=== PATIENT | female | born 1960 | race African-American/Black ===

== ENCOUNTER 2017-12-02 12:35 | Outpatient (CLI) | payer MEDICARE, OTHER ==
--- NOTE | 2017-12-02 17:32 | Diagnostic Imaging Report ---
Indication: Back pain Technique: 4 views of the lumbar spine Comparison: None Findings: Vertebral body heights are preserved. Disc spaces are preserved. There are degenerative proliferative changes, particularly at L4-5. No acute fractures. No dislocations. Sacral iliac joint spaces are preserved. There is suggestion of degenerative facet arthrosis of the lower lumbar spine bilaterally. The included extra spinal soft tissues are unremarkable Impression: Degenerative changes, as described. No acute bony trauma
--- NOTE | 2017-12-02 17:33 | Diagnostic Imaging Report ---
Indication: Reason For Exam: PAIN Technique: One view of the pelvis, 2 views of the right hip Comparison: none Findings: No acute fractures. No dislocations. The joint spaces are preserved Impression: Negative
== END 2017-12-02 14:35 | disposition home or self-care (01) ==
LOC: RAD 12:35
DX: R10.2 Pelvic and perineal pain (principal); M54.9 Dorsalgia, unspecified; M25.551 Pain in right hip; Q90.9 Down syndrome, unspecified
CPT/HCPCS: 72110; 72170

== ENCOUNTER 2019-07-21 13:01 | Inpatient (IN) | payer MEDICARE, OTHER ==
[~2019-07-21] VITALS: Ht 139.7 cm; Wt 61.7 kg
[2019-07-21] MEDS ORDERED: RISPERIDONE1 MG/1 ML PO (13:32)
[2019-07-21] MEDS ORDERED: GABAPENTIN100 MG ORAL (13:32)
--- NOTE | 2019-07-21 15:07 | NUR ---
ED Nurse Note: Pt walked into ED w/ c/o mid ab pain 7/10 for 3 days. Pt has had cough, congestion, dizziness for a week. Pt has had nausea as well and vomited 1x this morning. Pt ab soft non-tender. Pt alert and orientedx4, ambulatory.
[2019-07-21 15:25] VITALS: BP 100/69
[2019-07-21] MEDS ORDERED: LR 1000ml 1,000 ML IV ONE ×2 (15:30)
[2019-07-21] MEDS ORDERED: Morphine Sulfate 4mg/ml Inj (IV USE ONLY) IVP ONE (15:30)
[2019-07-21] MEDS ORDERED: Omnipaque-300 100ml vial INJ PRN (15:30)
[2019-07-21 15:44] LABS: APPEARANCE,URINE CLEAR; BILIRUBIN, URINE NEGATIVE (NEGATIVE); GLUCOSE, URINE (UA) NEGATIVE (NEGATIVE); KETONES,URINE 2+ (NEGATIVE); LEUKOCYTE ESTERASE ,URINE 1+ (NEGATIVE); NITRITE,URINE NEGATIVE (NEGATIVE); PH,URINE 5 (4.5-8.0); PROTEIN,URINE 1+ (NEGATIVE); UROBILINOGEN,URINE NORMAL MG/DL (0.0-1.0)
[2019-07-21 15:49] LABS: HEMATOCRIT 40.5 % (37.0-47.0); HEMOGLOBIN 13.8 G/DL (12.0-16.0); MEAN CORPUSCULAR VOLUME 93 FL (80-99); PLATELET COUNT 225 K/UL (150-450); RED BLOOD COUNT 4.37 M/UL (4.20-5.40); RED CELL DISTRIBUTION WIDTH 11.4 % (11.6-14.8); WHITE BLOOD COUNT 14.7 K/UL (4.8-10.8)
[2019-07-21 15:54] LABS: COLOR,URINE YELLOW
[2019-07-21 15:55] LABS: ANION GAP 8 mmol/L (5-15); BLOOD UREA NITROGEN 21 mg/dL (7-18); CARBON DIOXIDE 31 MMOL/L (21-32); CHLORIDE 103 MMOL/L (98-107); CREATININE 1.4 MG/DL (0.55-1.30); POTASSIUM 3.9 MMOL/L (3.5-5.1); SODIUM 142 MMOL/L (136-145)
[2019-07-21 15:59] LABS: ALANINE AMINOTRANSFERASE 41 U/L (12-78); ALBUMIN 3.1 G/DL (3.4-5.0); ALBUMIN/GLOBULIN RATIO 0.6 (1.0-2.7); ALKALINE PHOSPHATASE 88 U/L (46-116); ASPARTATE AMINO TRANSFERASE 34 U/L (15-37); BILIRUBIN,TOTAL 0.4 MG/DL (0.2-1.0)
--- NOTE | 2019-07-21 16:14 | Emergency Room Report ---
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 patient denies any chest pain but please note history is limited due to her Down syndrome Allergies: Coded Allergies: QUINOLONES (Verified Allergy, Unknown, 07/21/19) SULFONYLUREAS (Verified Allergy, Unknown, 07/21/19) Patient History Limited by: medical condition - Down syndrome Now: No Reviewed Nursing Documentation: PMH: Agreed; PSxH: Agreed Nursing Documentation-PMH Past Medical History: No History, Except For Hx Asthma: No Hx COPD: No Hx Diabetes: No History Of Psychiatric Problem: Yes Review of Systems All Other Systems: limited - Down syndrome Physical Exam Vital Signs Date Time Temp Pulse Resp B/P (MAP) Pulse Ox O2 Delivery O2 Flow Rate FiO2 07/21/19 13:20 97.9 54 19 98/55 (69) 96 07/21/19 15:25 Room Air Sp02 EP Interpretation: reviewed, normal General Appearance: well appearing, no apparent distress, alert Head: normocephalic, atraumatic Eyes: bilateral eye PERRL, bilateral eye EOMI ENT: uvula midline, dry mucus membranes Neck: supple, thyroid normal, supple/symm/no masses Respiratory: lungs clear, no respiratory distress, no retraction, no accessory muscle use Cardiovascular #1: normal peripheral pulses, regular rate, rhythm, no edema, no gallop, no murmur Gastrointestinal: non tender, soft, no guarding, no rebound Musculoskeletal: normal inspection Neurologic: alert, responsive Psychiatric: mood/affect normal Skin: no rash, warm/dry Medical Decision Making Diagnostic Impression: Primary Impression: Dehydration Additional Impression: Intractable nausea and vomiting ER Course 58-year-old female presents with abdominal pain differential diagnosis includes appendicitis, gastritis, gastroenteritis, Patient continues to vomit in the ER despite antiemetics patient also given fluid hydration given her dehydration and initial hypotension Patient improved significantly with 2 L however she continues to have vomiting and inability to tolerate p.o. We will admit patient Patient admitted to Dr. Castorena Laboratory Tests Test 07/21/19 15:30 White Blood Count 14.7 K/UL (4.8-10.8) H Red Blood Count 4.37 M/UL (4.20-5.40) Hemoglobin 13.8 G/DL (12.0-16.0) Hematocrit 40.5 % (37.0-47.0) Mean Corpuscular Volume 93 FL (80-99) Mean Corpuscular Hemoglobin 31.7 PG (27.0-31.0) H Mean Corpuscular Hemoglobin Concent 34.1 G/DL (32.0-36.0) Red Cell Distribution Width 11.4 % (11.6-14.8) L Platelet Count 225 K/UL (150-450) Mean Platelet Volume 7.9 FL (6.5-10.1) Neutrophils (%) (Auto) % (45.0-75.0) Lymphocytes (%) (Auto) % (20.0-45.0) Monocytes (%) (Auto) % (1.0-10.0) Eosinophils (%) (Auto) % (0.0-3.0) Basophils (%) (Auto) % (0.0-2.0) Neutrophils % (Manual) 90 % (45-75) H Lymphocytes % (Manual) 8 % (20-45) L Monocytes % (Manual) 2 % (1-10) Eosinophils % (Manual) 0 % (0-3) Basophils % (Manual) 0 % (0-2) Band Neutrophils 0 % (0-8) Platelet Estimate Adequate Platelet Morphology Normal Red Blood Cell Morphology Normal Urine Color Yellow Urine Appearance Clear Urine pH 5 (4.5-8.0) Urine Specific [place] 1.020 (1.005-1.035) Urine Protein 1+ (NEGATIVE) H Urine Glucose (UA) Negative (NEGATIVE) Urine Ketones 2+ (NEGATIVE) H Urine Blood Negative (NEGATIVE) Urine Nitrite Negative (NEGATIVE) Urine Bilirubin Negative (NEGATIVE) Urine Urobilinogen Normal MG/DL (0.0-1.0) Urine Leukocyte Esterase 1+ (NEGATIVE) H Urine RBC 0 /HPF (0 - 2) Urine WBC 5-10 /HPF (0 - 2) H Urine Squamous Epithelial Cells Few /LPF (NONE/OCC) Urine Bacteria Few /HPF (NONE) Sodium Level 142 MMOL/L (136-145) Potassium Level 3.9 MMOL/L (3.5-5.1) Chloride Level 103 MMOL/L (98-107) Carbon Dioxide Level 31 MMOL/L (21-32) Anion Gap 8 mmol/L (5-15) Blood Urea Nitrogen 21 mg/dL (7-18) H Creatinine 1.4 MG/DL (0.55-1.30) H Estimate Glomerular Filtration Rate 46.9 mL/min (>60) Glucose Level 112 MG/DL (74-106) H Calcium Level 9.0 MG/DL (8.5-10.1) Total Bilirubin 0.4 MG/DL (0.2-1.0) Aspartate Amino Transferase (AST) 34 U/L (15-37) Alanine Aminotransferase (ALT) 41 U/L (12-78) Alkaline Phosphatase 88 U/L (46-116) Troponin I 0.000 ng/mL (0.000-0.056) Total Protein 8.5 G/DL (6.4-8.2) H Albumin 3.1 G/DL (3.4-5.0) L Globulin 5.4 g/dL Albumin/Globulin Ratio 0.6 (1.0-2.7) L Lipase 100 U/L (73-393) EKG Diagnostic Results EKG Time: 16:01 EP Interpretation: Sinus bradycardia, rate 50, QTc 399, no acute ST elevations , right axis dev Rhythm Strip Diag. Results Rhythm Strip Time: 16:13 EP Interpretation: yes Rate: 55 Rhythm: no PVC's, no ectopy, other - Sinus bradycardia Chest X-Ray Diagnostic Results Chest X-Ray Diagnostic Results : Chest X-Ray Ordered: Yes # of Views/Limited/Complete: 1 View Indication: Other - abdominal pain EP Interpretation: Yes Interpretation: no consolidation, no effusion, no pneumothorax, no acute cardiopulmonary disease Impression: No acute disease Electronically Signed by: Stan Lange MD CT/MRI/US Diagnostic Results CT/MRI/US Diagnostic Results : Impression Preliminary Findings Only See Final Report For Complete Findings CT ABDOMEN & PELVIS With Contrast: Left base atelectasis Appearance of possible faint gallstone/s suggested at the fundus of noninflamed appearing gallbladder Small anterior pericardial fluid Abdominal solid organs and abdominal aorta appear within limits on noncontrast imaging No renal stones or hydronephrosis No bowel dilation or free air Normal caliber appendix without secondary signs Diverticulosis without diverticulitis Ovaries appear unremarkable Radiologist: Cal Salter M.D. Study ready at 17:01 and initial results transmitted at 17:20 Last Vital Signs Date Time Temp Pulse Resp B/P (MAP) Pulse Ox O2 Delivery O2 Flow Rate FiO2 07/21/19 15:25 97.8 20 100/69 96 Room Air 07/21/19 15:25 70 Disposition: ADMITTED INPATIENT Condition: Stable Stan Lange MD Jul 21, 2019 16:14
--- NOTE | 2019-07-21 16:14 | Diagnostic Imaging Report ---
Indication: Dyspnea Comparison: None A single view chest radiograph was obtained. Findings: No definite infiltrate or pulmonary vascular congestion identified. The heart is enlarged. The aorta is mildly enlarged consistent with atherosclerotic vascular disease. The bones are unremarkable. Impression: No acute disease
--- NOTE | 2019-07-21 17:20 | Diagnostic Imaging Report ---
Indication: Abdominal pain Technique: Spiral acquisitions obtained through the abdomen and pelvis. No oral contrast utilized, per emergency room physician request No IV contrast utilized, . History of contrast allergy.. Multiplanar reconstructions were generated. Total dose length product 1021 mGycm. CTDIvol(s) mGy. Dose reduction achieved using automated exposure control Comparison: None Findings: The appendix is normal. There are distal colonic diverticula. No evidence of diverticulitis. No free or loculated intraperitoneal gas or fluid. Normal caliber small bowel. Distal esophagus, stomach, duodenum are unremarkable. The gallbladder contains gallstones. The wall is questionably mildly thickened. There is no pericholecystic inflammation. Lack of IV contrast limits assessment of solid organs. The liver, bile ducts, pancreas, spleen, adrenals, kidneys, ureters, bladder are unremarkable. No retroperitoneal or mesenteric mass or adenopathy. No pelvic mass or adenopathy. Uterus and adnexal structures are unremarkable. The heart is mildly enlarged. It demonstrates a small amount of pericardial fluid. Atelectatic changes and groundglass opacity and some interstitial septal thickening are seen at the lung bases. The bones demonstrate mild degenerative spondylosis changes. Impression: No definite acute abdominal or pelvic process Cholelithiasis Diverticulosis without evidence of diverticulitis Cardiomegaly Small pericardial effusion Basilar atelectatic changes. Basilar pulmonary interstitial congestion and groundglass opacities may reflect mild pulmonary edema This agrees with the preliminary interpretation provided overnight by [facility] teleradiology service. The CT scanner at [facility] is accredited by the [employer] and the scans are performed using protocols designed to limit radiation exposure to as low as reasonably achievable to attain images of sufficient resolution adequate for diagnostic evaluation.
--- NOTE | 2019-07-21 17:20 | NUR ---
ED Nurse Note: Dr Lange notified pt HR as low as 40.
[2019-07-21] MEDS ORDERED: DiphenhydrAMINE 50mg/ml Inj IVP ONE (18:45)
--- NOTE | 2019-07-21 19:06 | NUR ---
HAND-OFF: Report given to Arturo HORAN.
[2019-07-21 19:07] VITALS: BP 105/71
--- NOTE | 2019-07-21 19:07 | NUR ---
ED Nurse Note: Received report from Zoe HORAN. Pt alert and oriented, HR 46 MD aware.
--- NOTE | 2019-07-21 20:37 | NUR ---
ED Nurse Note: Report given to Sahra HORAN.
[2019-07-21 20:50] VITALS: BP 101/72
--- NOTE | 2019-07-21 20:50 | NUR ---
TRANSFER TO FLOOR: Patient transferred to Telemetry unit. Report given to Sahra HORAN. Pt alert and oriented x3, verbally responsive. No SOB. sinus corona 52 HR, aware. IV line on right AC 20g patent and intact. Med recon done. No skin issues. All belongings given to the patient. Family member aware of the transfer.
--- NOTE | 2019-07-21 20:55 | NUR ---
NURSE NOTES: Received report from NEIL Morris RN. Patient was transferred to Telemetry unit from ER via draw sheet method, 2 staff member assist without incident. No signs of acute distress noted; denies pain at this time. Sister at bedside. AOx3; able to make needs known. Checked IV site; patent and flushed. No erythema, bleeding, or infiltration noted. Belongings list checked with transferring RN and patient. Skin assessment performed; no open wounds noted. Skin intact. Bed at lowest position, brakes on, siderails up x3. Call light within reach. Will continue to monitor.
[2019-07-21 21:32] VITALS: BP 115/59
--- NOTE | 2019-07-21 22:13 | NUR ---
NURSE NOTES: Called Dr. Castorena regarding admission orders. Awaiting callback.
[2019-07-22] VITALS: BP 118/57
--- NOTE | 2019-07-22 03:15 | Consultation ---
DATE OF CONSULTATION: 07/21/2019 CARDIOLOGY CONSULTATION CONSULTING PHYSICIAN: Dayton Castorena M.D. REQUESTING PHYSICIAN: Avinash West M.D. REASON: Bradycardia. HISTORY OF PRESENT ILLNESS: This is a 58-year-old female with a known history of sinus node disease. She has Down syndrome. She has had prior outpatient echocardiograms that have revealed no endocardial cushion defect with normal ejection fraction with no significant valvular disease. She has not had any syncopal episodes or symptomatic bradycardia although more recently she has been more fatigued than usual. The patient has a history of mildly elevated TSH in the past, but has not been on thyroid replacement. The patient's sister is her durable [id number] for health care. She has refused a pacemaker in the past unless patient is symptomatic and has also refused thyroid supplements, which she claims the patient did not tolerate it in the past. The patient ate some fried chicken yesterday evening and early during the morning, she began having episodes of vomiting and these persisted during the morning prompting the patient's sister to bring her to the emergency room. Bilious food containing vomit is described with no blood. PAST MEDICAL HISTORY: As noted above. ALLERGIES: None known. FAMILY HISTORY: Notable for hypertension, cardiac arrhythmias, and pacemaker in her mother. REVIEW OF SYSTEMS: A 10-point review of systems performed. All systems negative other than noted above. PHYSICAL EXAMINATION: VITAL SIGNS: Blood pressure 98/55, pulse 54, respiratory rate 19, and afebrile. HEENT: Dry mucous membranes. NECK: Supple. LUNGS: Clear. CARDIAC: Regular rhythm and rate. Normal S1 and S2 with no murmur. ABDOMEN: Soft. No focal tenderness, guarding, or rebound. EXTREMITIES: No edema. NEUROLOGIC: No focal deficits. LABORATORY DATA: White count 14.7 and hemoglobin 13.8. Sodium 142, potassium 3.9, bicarb 31, BUN 21, creatinine 1.4, and glucose 112. Troponin 0. Albumin 3.1. IMPRESSION: 1. Probable gastroenteritis, hypovolemia, dehydration, and acute kidney injury due to above. 2. Mild protein-calorie malnutrition, asymptomatic. 3. Sinus node disease with bradycardia. 4. Down syndrome. 5. Diverticulosis. 6. Possible pericardial effusion. 7. CT scan of the abdomen reviewed. PLAN: 1. Hydration. 2. Antiemetics. 3. Follow up white blood count. 4. Echocardiogram. 5. Cardiac monitoring. 6. Consider abdominal ultrasound. 7. Check full thyroid panel. Dayton Castorena M.D. DR: MAO JOB#: [id number] CC: CARLOS
[2019-07-22 04:00] VITALS: BP 101/54
--- NOTE | 2019-07-22 05:08 | NUR ---
NURSE NOTES: Patient is asleep lying semi-ruby's; resting comfortably. No signs of acute distress or pain noted at this time. Sister at bedside.
--- NOTE | 2019-07-22 07:16 | NUR ---
HAND-OFF: Report given to AUNG Ramos. Patient is awake lying semi-ruby's; resting comfortably. Sister at bedside. In stable condition.
[2019-07-22 07:23] LABS: BASOPHILS % (AUTO) 0.3 % (0.0-2.0); HEMATOCRIT 36.2 % (37.0-47.0); LYMPHOCYTES % (AUTO) 10.5 % (20.0-45.0); MEAN CORPUSCULAR VOLUME 95 FL (80-99); MONOCYTES % (AUTO) 6.1 % (1.0-10.0); NEUTROPHILS % (AUTO) 83.1 % (45.0-75.0); PLATELET COUNT 208 K/UL (150-450); RED BLOOD COUNT 3.82 M/UL (4.20-5.40); RED CELL DISTRIBUTION WIDTH 12.9 % (11.6-14.8); WHITE BLOOD COUNT 10.8 K/UL (4.8-10.8)
[2019-07-22 07:57] LABS: ALANINE AMINOTRANSFERASE 30 U/L (12-78); ALBUMIN 2.4 G/DL (3.4-5.0); ALBUMIN/GLOBULIN RATIO 0.5 (1.0-2.7); ALKALINE PHOSPHATASE 67 U/L (46-116); ANION GAP 6 mmol/L (5-15); ASPARTATE AMINO TRANSFERASE 23 U/L (15-37); BILIRUBIN,TOTAL 0.3 MG/DL (0.2-1.0); BLOOD UREA NITROGEN 14 mg/dL (7-18); CALCIUM 8.1 MG/DL (8.5-10.1); CARBON DIOXIDE 30 MMOL/L (21-32); CHLORIDE 106 MMOL/L (98-107); CHOLESTEROL 119 MG/DL (< 200); HDL CHOLESTEROL 45 MG/DL (40-60); POTASSIUM 3.8 MMOL/L (3.5-5.1); SODIUM 142 MMOL/L (136-145); TRIGLYCERIDES 57 MG/DL (30-150)
[2019-07-22 08:00] VITALS: BP 106/62
--- NOTE | 2019-07-22 08:13 | NUR ---
NURSE NOTES: Received patient from Naveed Bocanegra. Patient is awake and alert. responding to questions appropriately. No complain of pain or discomfort at this time. Family at bedside. Dr. West in to see patient at change of shift. Updated re: patient status. Fall precautions in place. Call kendrick within placed. will follow.
--- NOTE | 2019-07-22 10:15 | History and Physical Report ---
DATE OF ADMISSION: 07/21/2019 CHIEF COMPLAINT: Nausea, vomiting, and bradycardia. HISTORY OF PRESENT ILLNESS: The patient is a 58-year-old female. She has a history of Down syndrome, hypertension, and conduction system disease. According to her family, she was well until the night of admission when she developed intractable nausea and vomiting. Family believes it may been related to some fast-food that she ate, although at her adult daycare she has been having normal bowel movements. Denies any hematemesis or melena. On evaluation in the emergency room, she had a CAT scan of the abdomen and was unremarkable. She was noted to be bradycardic with heart rate in the mid 40s. She is now admitted for further evaluation and care. Of note, in the ER, she did have a white count of 15,000. Creatinine was elevated at 1.4. She had 5 to 10 wbc's. PAST MEDICAL HISTORY: As above. PAST SURGICAL HISTORY: None. CURRENT MEDICATIONS: Reconciled and reviewed. ALLERGIES: Include quinolones and sulfonylureas. FAMILY HISTORY: Noncontributory. SOCIAL HISTORY: There is no known history of tobacco, ethanol, or drugs. REVIEW OF SYSTEMS: GENERAL: No fever or chills. HEENT: No headaches or visual changes. CARDIOPULMONARY: No chest pain or shortness of breath. GASTROINTESTINAL: Positive nausea and vomiting. No diarrhea. GENITOURINARY: No urgency or frequency. MUSCULOSKELETAL: No joint pain or swelling. NEUROLOGIC: No evidence of seizures. PHYSICAL EXAMINATION: VITAL SIGNS: Temperature 97.4, pulse 48, respirations 18, and blood pressure 101/54. GENERAL: The patient is well developed, in no apparent distress. HEART: Bradycardic. LUNGS: Clear. ABDOMEN: Soft, nontender, and nondistended with normoactive bowel sounds. EXTREMITIES: Without clubbing, cyanosis, or edema. LABORATORY DATA: UA showed 5 to 10 wbc's. White count was 15,000. Sodium 142, creatinine was 1.4. ASSESSMENT: This is a pleasant female admitted with complaints of intractable nausea and vomiting, suspect secondary to gastroenteritis, cannot rule out a possible urinary tract infection or stones. She is also significantly bradycardic with mild acute renal failure secondary to dehydration. PLAN: 1. IV hydration. 2. Antiemetics. 3. Follow up urine culture results. 4. Consider ultrasound of the abdomen to assess for gallstones. 5. Cardiology consultation regarding the patient's bradycardia has been obtained. Avinash West M.D. DR: DUSTY JOB#: [id number] CC:
--- NOTE | 2019-07-22 10:49 | NUR ---
COMMISSIONS MANAGER SW received a notification to assess suicidality, abuse or neglect on 07/22/19. BRADLEY met w/ pt at her bedside. Pt presents as A&Ox4,cooperative w/pleasant demeanor. Pt resides w/ her sister, Sonja Kerns at [address] [place] [address]. Per pt, her sister Sonja Kerns [phone] is the POA. Pt is currently single, never , no child and receives SSI (payee:Sonja Kerns). Pt denies substance abuse and declined counseling/tx intervention/resource on SUB abuse. Pt reports she has adequate family and social support. Pt denies hx of mental illness. Pt also denies having thought of suicide/homicide or hx of SI/HI/attempt. Pt states she is happy and she misses her boyfriend who resides in [place]. Pt currently denies being neglect/abused. Pt states she attends the day care program every Mondays, Wednesdays and Fridays. Pt plans to return home w/ her sister upon DC. Pt did not have any concern/issue at this time. BRADLEY encouraged pt to verbalize her needs/concerns/issues. Pt verbalized understanding. Signed: 07/22/19 at 1100 by CLEOPATRA HUERTA <Co-Signature Required>
[2019-07-22] MEDS: Liothyronine 5mcg tab ORAL SCH (11:23)
[2019-07-22 12:00] VITALS: BP 116/63
--- NOTE | 2019-07-22 15:00 | Progress Note ---
DATE: 07/22/2019 CARDIOLOGY PROGRESS NOTE SUBJECTIVE: No vomiting, but still with some abdominal discomfort and nausea, tolerated for breakfast. Monitored sinus bradycardia. No pauses. OBJECTIVE: VITAL SIGNS: Blood pressure is 101/54, heart rate is 48 and regular. NECK: Supple. Jugular venous pressure normal. LUNGS: Clear. CARDIAC: Regular. Normal S1, S2. ABDOMEN: Slightly tender diffusely. No guarding or rebound. ABDOMEN: Soft. EXTREMITIES: There is no edema. LABORATORY DATA: Notable for albumin 2.4. White count 10.8. Potassium 3.8. Magnesium 1.7. TSH of 4.3, free T3 and free T4 were low normal range. IMPRESSION: 1. Probable gastroenteritis with nausea and vomiting, resolving. 2. Acute kidney injury due to hypovolemia and dehydration, resolved. 3. Hypomagnesemia. 4. Severe protein-calorie malnutrition. 5. Down syndrome. 6. Mild clinical hypothyroidism. 7. Sinus node disease with asymptomatic bradycardia. PLAN: 1. Continue hydration. 2. Advanced diet. 3. IV magnesium. 4. Protein supplement. 5. Thyroid supplement. 6. Continue cardiac monitoring and mobilize. 7. If additional nausea, vomiting, we will pursue abdominal ultrasound, otherwise can advance diet in anticipation of discharge. Dayton Castorena M.D. DR: SHA JOB#: [id number] CC:
--- NOTE | 2019-07-22 15:54 | NUR ---
CASE MANAGEMENT:REVIEW 58 YR OLD FEMALE FROM HOME TO ER CC: ABDOMINAL PAIN. NAUSEA AND VOMITING SI: DEHYDRATION. INTRACTABLE NAUSEA AND VOMITING 97.9 54 19 98/55 96% ON RA WBC+14.7 BUN+21 CR+1.4 IS: IV ZOFRAN IV PEPCID IV MORPHINE 1L NS BOLUS X2 CHEST XRAY CT ABD/PELVIS : TO TELEMETRY
[2019-07-22 16:00] VITALS: BP 118/56
--- NOTE | 2019-07-22 19:29 | NUR ---
HAND-OFF: Report given to Naveed Bocanegra. PLan of care endorsed.
--- NOTE | 2019-07-22 19:36 | NUR ---
NURSE NOTES: Received report from AUNG Ramos. Patient is awake lying semi-ruby's; resting comfortably. No signs of acute distress noted; denies pain at this time. Family at bedside. AOx3; able to make needs known. Checked IV site, lines, and IV rate; patent and running. No erythema, bleeding, or infiltration noted. Bed at lowest position, brakes on, siderails up x3. Call light within reach. Will continue to monitor.
[2019-07-22 20:00] VITALS: BP 121/60
[2019-07-23] VITALS: BP 108/54
--- NOTE | 2019-07-23 03:56 | NUR ---
NURSE NOTES: Patient is asleep lying semi-ruby's; resting comfortably. No signs of acute distress or pain noted at this time. Sister at bedside.
[2019-07-23 04:00] VITALS: BP 106/56
--- NOTE | 2019-07-23 07:03 | NUR ---
HAND-OFF: Report given to AUNG Ramos. Patient is awake lying semi-ruby's; resting comfortably. Sister at bedside. In stable condition.
--- NOTE | 2019-07-23 07:39 | NUR ---
NURSE NOTES: Received patient from Naveed Bocanegra. Patient is sleeping comfortably in bed. No signs and symptoms of distress. Sister at bedside. Fall precautions in place. will monitor.
[2019-07-23 08:00] VITALS: BP 118/56
[2019-07-23] MEDS: Liothyronine 5mcg tab ORAL SCH (08:25)
[2019-07-23] MEDS ORDERED: Docusate 250mg cap ORAL SCH (11:00)
[2019-07-23 12:00] VITALS: BP 126/73
--- NOTE | 2019-07-23 13:40 | NUR ---
NURSE NOTES: Patient discharge to home as per Dr. Castorena's order. MD in to see patient prior to discharge. Prescription medications handed to family memeber by mD, Doctor Raffaele stated patient already have all medications at home. Per Sister patient is also being seen by MD outpatient. Discharge instructions discussed to Sister and patient and verbalizes understanding. Belongings taken home by patient. online project manager, ID band and IV removed from patient.
--- NOTE | 2019-07-24 00:45 | Progress Note ---
DATE: 07/23/2019 CARDIOLOGY PROGRESS NOTE SUBJECTIVE: No nausea or vomiting. Tolerating diet. Monitored rhythm, sinus bradycardia. No pauses. OBJECTIVE: VITAL SIGNS: Blood pressure 118/56, pulse 53, respiratory rate 18. LUNGS: Clear. CARDIAC: Regular. Normal ____ S1 and S2. No murmur. ABDOMEN: Soft and nontender. EXTREMITIES: No edema. IMPRESSION: 1. Probable viral gastroenteritis, resolved. 2. Nausea and vomiting, resolved. 3. Hypomagnesemia, repleted. 4. Severe protein-calorie malnutrition. 5. Hypothyroidism. 6. Sinus node disease with bradycardia that is asymptomatic. 7. Down syndrome. PLAN: 1. Transition from IV to oral therapy. 2. Protein supplement. 3. Thyroid supplement. 4. No current indication for pacemaker. 5. Discussed with the patient's durable power of corporate associate attorney. 6. We would consider pacemaker only if symptomatic in the future. Dayton Castorena M.D. DR: GINGER JOB#: [id number] CC:
--- NOTE | 2019-07-24 17:19 | Discharge Summary ---
Discharge Summary Discharge Summary _ DATE OF ADMISSION: 07/21/2019 DATE OF DISCHARGE: 07/23/2019 DISCHARGED BY: Dr. Dayton Castorena CONSULTANTS: Dr. Avinash West BRIEF HOSPITAL COURSE: The patient is a 58-year-old female. She has history of Down syndrome, hypertension and conduction system disease. According to the family, she was well until the night of admission when she developed intractable nausea and vomiting. Family believes and is related to fast food that she ate, although at the adult daycare, she has been having normal bowel movements. Denies any hematemesis or melena. Upon evaluation at ED, she was initially hypotensive. Blood work showed WBC elevated to 14.7. Electrolytes normal. BUN 21 and creatinine was elevated to 1.4. Urinalysis with +1 leukocyte esterase, 5-10 urine WBC, 0 urine RBC. She continued to vomit despite antiemetics. She was given IV hydration. Abdominal and pelvic CT was unremarkable. She was noted to be bradycardic with heart rate in the mid 40s. She was admitted for further care and evaluation. She was admitted to monitored floor. She was given IV hydration. She was placed on antiemetics. Refractive Surgeon consulted. Patient has a history of sinus node disease. She had prior outpatient echocardiograms that revealed no endocardial cushion defect with normal ejection fraction with no significant valvular disease. Patient with no syncopal episode or symptomatic bradycardia although more recently had been more fatigued than usual. She has history of mildly elevated TSH in the past, but has not been on any thyroid replacement. Patient's sister is [employer] for healthcare. She has refused pacemaker in the past unless patient is symptomatic and also refused thyroid supplements. She was eventually started on diet. There was no recurrence of vomiting although patient still had abdominal discomfort and nausea. She continued to be sinus bradycardic on the monitor with no pauses. TSH 4.4. Free T4 and free T3 level were low. She was started on liothyronine. Nausea and vomiting resolved. She was tolerating diet. There was no current indication for pacemaker. Consider pacemaker only if symptomatic, in the future. She was eventually discharged home. FINAL DIAGNOSES: Probable viral gastroenteritis, resolved Nausea and vomiting, resolved Hypomagnesemia, repleted Severe protein calorie malnutrition Hypothyroidism Sinus node with bradycardia, asymptomatic Down syndrome DISPOSITION: Patient was discharged home. DISCHARGE INSTRUCTIONS: Follow-up in a week. I have been assigned to complete a discharge summary on this account, I was not involved with the patient's management.--THOMAS Gordon Jacqueline Robles NP Jul 24, 2019 17:19
--- NOTE | 2019-07-26 12:45 | Discharge Summary ---
DATE OF ADMISSION: 07/21/2019 DATE OF DISCHARGE: 07/23/2019 NOTE: "POOR AUDIO QUALITY/DISTORTED AUDIO" ADMISSION DIAGNOSES: 1. Intractable nausea and vomiting. 2. Dehydration. 3. Hypertension. 4. History of bradycardia and conduction system disease. DISCHARGE DIAGNOSES: 1. Intractable nausea and vomiting. 2. Dehydration. 3. Hypertension. 4. History of bradycardia and conduction system disease. 5. gastroenteritis. HOSPITAL COURSE: The patient is a female who presented with intractable nausea and vomiting. She was hydrated, unable to tolerate any p.o. She was admitted. She received aggressive hydration and antiemetic therapy. Her nausea and vomiting resolved spontaneously. It was felt that her nausea and vomiting was likely gastroenteritis. on discharge, she was stable. DISCHARGE MEDICATIONS: Please see discharge medication list for discharge medications. DIET: Regular diet. ACTIVITIES: Ad-pamella. FOLLOWUP: The patient is to follow up in the office in 1-2 weeks. Avinash West M.D. DR: MIGEL JOB#: [id number] CC:
== END 2019-07-23 13:35 | disposition home or self-care (01) | DRG 682 ==
LOC: EMR 13:45 → EDBEDREQ 18:00 → 2E 18:17 → EDBEDREQ 20:28
DX: N17.9 Acute kidney failure, unspecified (principal); E43 Unspecified severe protein-calorie malnutrition; E86.0 Dehydration; E86.1 Hypovolemia; K52.9 Noninfective gastroenteritis and colitis, unspecified; Z88.8 Allergy status to other drugs, medicaments and biological substances; Q90.9 Down syndrome, unspecified; I10 Essential (primary) hypertension; E83.42 Hypomagnesemia; E03.9 Hypothyroidism, unspecified; R00.1 Bradycardia, unspecified; K57.90 Diverticulosis of intestine, part unspecified, without perforation or abscess without bleeding
CPT/HCPCS: 36415; 71045; 74176; 80053; 80061; 81003; 82962; 83690; 83735; 84439; 84443; 84481; 84484; 85007; 85025; 93005; 93306; 96361; 96374; 96375; 96376; 99285; J2405; J7030